=== PATIENT | male | born 1945 | race Two or more races ===

== ENCOUNTER 2017-05-17 08:00 | Outpatient (CLI) | payer MEDICARE, MEDICAID | END 2017-05-17 23:59 | disposition home or self-care (01) | LOC: WOU 08:00 | PROVIDERS: ATTEND Podiatrist Foot & Ankle Surgery | DX: M72.2 Plantar fascial fibromatosis (principal); L84 Corns and callosities; E11.42 Type 2 diabetes mellitus with diabetic polyneuropathy; M20.5X2 Other deformities of toe(s) (acquired), left foot; Z86.31 Personal history of diabetic foot ulcer; M35.1 Other overlap syndromes; L85.3 Xerosis cutis; Z86.718 Personal history of other venous thrombosis and embolism; Z86.73 Personal history of transient ischemic attack (TIA), and cerebral infarction without residual deficits | CPT/HCPCS: G0463 ==

== ENCOUNTER 2017-07-14 08:00 | Outpatient (CLI) | payer MEDICARE | END 2017-07-14 23:59 | disposition home or self-care (01) | LOC: WOU 08:00 | PROVIDERS: ATTEND Podiatrist Foot & Ankle Surgery | DX: M20.5X2 Other deformities of toe(s) (acquired), left foot (principal); L84 Corns and callosities; M20.21 Hallux rigidus, right foot; E11.42 Type 2 diabetes mellitus with diabetic polyneuropathy; I87.2 Venous insufficiency (chronic) (peripheral); L85.3 Xerosis cutis | CPT/HCPCS: G0463 ==

== ENCOUNTER → 2017-09-06 | Outpatient (CLI) | payer MEDICARE | END | disposition home or self-care (01) | LOC: WOU 08:00 | PROVIDERS: ATTEND Podiatrist Foot & Ankle Surgery | DX: M20.41 Other hammer toe(s) (acquired), right foot (principal); M20.42 Other hammer toe(s) (acquired), left foot; I87.2 Venous insufficiency (chronic) (peripheral); L84 Corns and callosities; B35.1 Tinea unguium; I73.9 Peripheral vascular disease, unspecified; E11.65 Type 2 diabetes mellitus with hyperglycemia; E11.40 Type 2 diabetes mellitus with diabetic neuropathy, unspecified; M79.672 Pain in left foot; M79.671 Pain in right foot | CPT/HCPCS: G0463 ==

== ENCOUNTER 2017-11-28 08:33 | Outpatient (CLI) | payer MEDICARE | END 2017-11-28 23:59 | disposition home or self-care (01) | LOC: WOU 08:33 | PROVIDERS: ATTEND Podiatrist Foot & Ankle Surgery | DX: S90.415A Abrasion, left lesser toe(s), initial encounter (principal); X58.XXXA Exposure to other specified factors, initial encounter; E11.42 Type 2 diabetes mellitus with diabetic polyneuropathy; Z79.84 Long term (current) use of oral hypoglycemic drugs; L84 Corns and callosities; B35.3 Tinea pedis; B35.1 Tinea unguium; I48.91 Unspecified atrial fibrillation; Z79.01 Long term (current) use of anticoagulants; E78.5 Hyperlipidemia, unspecified; I25.10 Atherosclerotic heart disease of native coronary artery without angina pectoris; Y93.9 Activity, unspecified; Y92.89 Other specified places as the place of occurrence of the external cause; Y99.9 Unspecified external cause status; Z86.73 Personal history of transient ischemic attack (TIA), and cerebral infarction without residual deficits | CPT/HCPCS: A6402; G0463; Z7610 ==

== ENCOUNTER 2018-10-02 08:10 | Outpatient (CLI) | payer MEDICARE | END 2018-10-02 23:59 | disposition home or self-care (01) | LOC: WOU 08:10 | PROVIDERS: ATTEND Podiatrist Foot & Ankle Surgery | DX: L84 Corns and callosities (principal); E11.42 Type 2 diabetes mellitus with diabetic polyneuropathy; B35.1 Tinea unguium; Q66.89 Other specified congenital deformities of feet; L90.9 Atrophic disorder of skin, unspecified; Z79.01 Long term (current) use of anticoagulants; Z79.84 Long term (current) use of oral hypoglycemic drugs | CPT/HCPCS: A6402; G0463 ==

== ENCOUNTER 2018-11-06 08:22 | Outpatient (CLI) | payer MEDICARE | END 2018-11-06 23:59 | disposition home or self-care (01) | LOC: WOU 08:22 | PROVIDERS: ATTEND Podiatrist Foot & Ankle Surgery | DX: L84 Corns and callosities (principal); L60.0 Ingrowing nail; E11.42 Type 2 diabetes mellitus with diabetic polyneuropathy; Z79.84 Long term (current) use of oral hypoglycemic drugs; M20.42 Other hammer toe(s) (acquired), left foot; M20.41 Other hammer toe(s) (acquired), right foot; L90.9 Atrophic disorder of skin, unspecified; Z79.01 Long term (current) use of anticoagulants | CPT/HCPCS: A6402; G0463 ==

== ENCOUNTER 2019-01-08 08:00 | Outpatient (CLI) | payer MEDICARE | END 2019-01-08 23:59 | disposition home or self-care (01) | LOC: WOU 08:00 | PROVIDERS: ATTEND Podiatrist Foot & Ankle Surgery | DX: L84 Corns and callosities (principal); E11.9 Type 2 diabetes mellitus without complications; Z86.31 Personal history of diabetic foot ulcer; B35.1 Tinea unguium; L60.0 Ingrowing nail; M20.40 Other hammer toe(s) (acquired), unspecified foot; I80.3 Phlebitis and thrombophlebitis of lower extremities, unspecified; R60.9 Edema, unspecified; Z79.01 Long term (current) use of anticoagulants; Z79.84 Long term (current) use of oral hypoglycemic drugs | CPT/HCPCS: G0463 ==

== ENCOUNTER 2019-03-15 08:00 | Outpatient (CLI) | payer MEDICARE | END 2019-03-15 23:59 | disposition home or self-care (01) | LOC: WOU 08:00 | PROVIDERS: ATTEND Podiatrist Foot & Ankle Surgery | DX: L84 Corns and callosities (principal); E11.42 Type 2 diabetes mellitus with diabetic polyneuropathy; B35.1 Tinea unguium; M20.40 Other hammer toe(s) (acquired), unspecified foot; S90.425A Blister (nonthermal), left lesser toe(s), initial encounter; X58.XXXA Exposure to other specified factors, initial encounter; Y92.89 Other specified places as the place of occurrence of the external cause | CPT/HCPCS: G0463 ==

== ENCOUNTER 2019-05-17 08:30 | Outpatient (CLI) | payer BC, MEDICARE | END 2019-05-17 23:59 | disposition home or self-care (01) | LOC: WOU 08:30 | PROVIDERS: ATTEND Podiatrist Foot & Ankle Surgery | DX: E11.621 Type 2 diabetes mellitus with foot ulcer (principal); L97.522 Non-pressure chronic ulcer of other part of left foot with fat layer exposed; E11.42 Type 2 diabetes mellitus with diabetic polyneuropathy; M21.10 Varus deformity, not elsewhere classified, unspecified site; M20.42 Other hammer toe(s) (acquired), left foot; M20.41 Other hammer toe(s) (acquired), right foot; L84 Corns and callosities; R26.9 Unspecified abnormalities of gait and mobility; B35.1 Tinea unguium; Z79.84 Long term (current) use of oral hypoglycemic drugs | CPT/HCPCS: 11042 ==

== ENCOUNTER 2019-05-31 08:00 | Outpatient (CLI) | payer BC | END 2019-05-31 23:59 | disposition home or self-care (01) | LOC: WOU 08:00 | PROVIDERS: ATTEND Podiatrist Foot & Ankle Surgery | DX: Z09 Encounter for follow-up examination after completed treatment for conditions other than malignant neoplasm (principal); E11.42 Type 2 diabetes mellitus with diabetic polyneuropathy; Z86.31 Personal history of diabetic foot ulcer; B35.1 Tinea unguium; M20.42 Other hammer toe(s) (acquired), left foot; L84 Corns and callosities; R26.9 Unspecified abnormalities of gait and mobility; Z79.84 Long term (current) use of oral hypoglycemic drugs | CPT/HCPCS: G0463 ==

== ENCOUNTER 2019-07-12 08:05 | Outpatient (CLI) | payer BC | END 2019-07-12 23:59 | disposition left against medical advice (07) | LOC: WOU 08:05 | PROVIDERS: ATTEND Podiatrist Foot & Ankle Surgery | DX: Z75.3 Unavailability and inaccessibility of health-care facilities (principal) ==